=== PATIENT | female | born 2000 | race Two or more races ===

== ENCOUNTER 2024-04-10 23:36 | Inpatient (IN) | payer MEDICAID, OTHER ==
[~2024-04-10] VITALS: Ht 157.5 cm; Wt 57.6 kg
[2024-04-11 00:47] LABS: BASOPHILS % (AUTO) 0.2 % (0.0-2.0); EOSINOPHILS % (AUTO) 0.2 % (1.0-6.0); HEMATOCRIT 41.2 % (36-46); HEMOGLOBIN 12.8 g/dL (12.0-16.0); LYMPHOCYTES # (AUTO) 1.9 K/uL (1.0-4.8); LYMPHOCYTES % (AUTO) 17.6 % (22.0-44.0); MEAN CORPUSCULAR HEMOGLOBIN 20.3 pg (26.0-34.0); MEAN CORPUSCULAR HGB CONC 31.2 G/dL (31.0-37.0); MEAN CORPUSCULAR VOLUME 65 fL (80-100); MONOCYTES # (AUTO) 0.9 K/uL (0.1-1.0); MONOCYTES % (AUTO) 8.4 % (2.0-9.0); NEUTROPHILS # (AUTO) 7.9 K/uL (1.8-7.7); NEUTROPHILS % (AUTO) 73.6 % (40.0-70.0); PLATELET COUNT (AUTO) 253 K/uL (150-450); RED BLOOD CELL COUNT(AUTO) 6.33 MIL/uL (4.00-5.20); RED CELL DISTRIBUTION WIDTH 15.7 % (11.5-14.5); WHITE BLOOD COUNT (AUTO) 10.8 K/uL (4.5-11.0)
[2024-04-11 00:57] LABS: ANION GAP 15 mmol/L (8-16); CALCIUM, TOTAL 9.2 mg/dL (8.8-10.5); CARBON DIOXIDE 24 mmol/L (22-29); CHLORIDE 100 mmol/L (98-107); CREATININE 0.79 mg/dL (0.60-1.30); GLOMERULAR FILTR. RATE CALC > 60 mL/min (>60); GLUCOSE,RANDOM 107 mg/dL (70-110); POTASSIUM 3.1 mmol/L (3.5-5.1); SODIUM SERUM 139 mmol/L (136-145); UREA NITROGEN, BLOOD 8 mg/dL (7-18)
[2024-04-11 01:03] LABS: COVID AG,FIA SOURCE NASAL SWAB
[2024-04-11 01:12] LABS: ALCOHOL, BLOOD (SERUM) 72 mg/dL (0-10)
[2024-04-11 01:23] LABS: SARS-COV2 (COVID) ANTIGEN,FIA Negative (Negative)
[2024-04-11 02:01] LABS: RBC MORPHOLOGY COMMENT ABNORMAL RBC MORPH
[2024-04-11] MEDS ORDERED: ACETAMINOPHEN 650 MG/ISO-OSM 65 ML IV ONE (05:45)
[2024-04-11] MEDS ORDERED: LORazepam 2 MG TABLET PO PRN (06:00)
[2024-04-11] MEDS ORDERED: HALOPERIDOL 5 MG TABLET PO PRN (06:00)
[2024-04-11] MEDS ORDERED: ZOLPIDEM TARTRATE 10 MG TABLET PO PRN (06:00)
[2024-04-11] MEDS: POTASSIUM CHLORIDE 20 MEQ ER TABLET PO ONE (06:55)
[2024-04-11] MEDS: AMOX TR/POT CLAV 500 MG/125 MG TABLET PO ONE (06:55)
[2024-04-11] MEDS: PERTUSS(ACELL),DIPH,TET/PF 0.5 ML SYRINGE [ADULT] IM. ONE (06:56)
[2024-04-11 10:08] LABS: APPEARANCE,URINE HAZY (CLEAR); BILIRUBIN,URINE NEGATIVE (NEGATIVE); COLOR,URINE YELLOW (YELLOW); GLUCOSE, URINE (UA) NEGATIVE (NEGATIVE); LEUKOCYTE ESTERASE ,URINE TRACE (NEGATIVE); NITRATE,URINE NEGATIVE (NEGATIVE); OCCULT BLOOD,URINE SMALL (NEGATIVE); PH,URINE 5.5 (5.0-8.0); PH,URINE DRUG SCREEN 5.5 (5.0-8.0); PROTEIN,URINE TRACE mg/dL (NEGATIVE); SPECIFIC GRAVITIY, URINE 1.025 (1.003-1.030); UROBILINOGEN,URINE <=1.0 mg/dL (<=1.0)
[2024-04-11 10:14] LABS: ALCOHOL, URINE DRUG SCREEN NEGATIVE (NEGATIVE); AMPHET/METH SCREEN,URINE NEGATIVE (NEGATIVE); BARBITURATE SCREEN, URINE NEGATIVE (NEGATIVE); BENZODIAZEPINES SCREEN,URINE NEGATIVE (NEGATIVE); CANNABINOID SCREEN,URINE POSITIVE (NEGATIVE); COCAINE SCREEN,URINE NEGATIVE (NEGATIVE); METHADONE SCREEN, URINE NEGATIVE (NEGATIVE); OPIATE SCREEN,URINE NEGATIVE (NEGATIVE); PHENCYCLIDINE SCREEN,URINE NEGATIVE (NEGATIVE)
[2024-04-11 10:30] VITALS: O2SAT 98
[2024-04-11 10:38] LABS: BACTERIA,URINE Few /HPF (None Seen); RBC,URINE 0-2 /HPF (0-2); SQUAMOUS EPITHELIAL CELL,UR Few /LPF (None Seen); WBC,URINE None Seen /HPF (0-5)
[2024-04-11 10:39] LABS: AMORPHOUS SEDIMENT,UR Moderate /LPF (None Seen)
[2024-04-11 14:19] VITALS: BP 122/83; PULSE 98; RESP 16; TEMP 97.7; O2SAT 98
[2024-04-11 20:12] VITALS: BP 106/75; PULSE 88; RESP 17; TEMP 97.6; O2SAT 97
[2024-04-12 08:19] VITALS: BP 108/75; PULSE 100; RESP 18; TEMP 96.9; O2SAT 99
[2024-04-12 20:24] VITALS: BP 136/77; PULSE 78; RESP 16; TEMP 98.2; O2SAT 98
[2024-04-13] MEDS ORDERED: DOCUSATE SODIUM 100 MG CAPSULE PO PRN (08:00)
[2024-04-13] MEDS ORDERED: ONDANSETRON 4 MG TABLET PO PRN (08:00)
[2024-04-13] MEDS ORDERED: ALBUTEROL SULFATE HFA 90 MCG/PUFF 8 GM INHALER IH PRN (08:00)
[2024-04-13] MEDS ORDERED: IBUPROFEN 400 MG TABLET PO PRN (08:00)
[2024-04-13] MEDS ORDERED: ACETAMINOPHEN 325 MG TABLET PO PRN (08:00)
[2024-04-13] MEDS ORDERED: CloNIDine HCL 0.1 MG TABLET PO PRN (08:00)
[2024-04-13] MEDS ORDERED: PETROLATUM,WHITE 28 GM JELLY TP PRN (08:00)
[2024-04-13] MEDS ORDERED: MAG HYDROX/ALUMINUM HYD/SIMETH ES 30 ML SUSPENSION UDCUP PO PRN (08:00)
[2024-04-13] MEDS ORDERED: MAGNESIUM HYDROXIDE SUSPENSION 30 ML UDCUP PO PRN (08:00)
[2024-04-13] MEDS ORDERED: GuaiFENesin/D-METHORPHAN [SUGAR-FREE] 200-20MG/10 ML SYRUP UDCUP PO PRN (08:00)
[2024-04-13] MEDS ORDERED: LOPERAMIDE HCL 2 MG CAPSULE PO PRN (08:00)
[2024-04-13] MEDS ORDERED: NICOTINE 14 MG/24 HOUR PATCH TD PRN (08:00)
[2024-04-13 08:34] VITALS: BP 115/67; PULSE 79; RESP 16; TEMP 97.6; O2SAT 98
[2024-04-13] MEDS: CEPHALEXIN MONOHYDRATE 500 MG CAPSULE PO SCH (08:55)
== END 2024-04-13 13:35 | disposition home or self-care (01) | DRG 751 ==
LOC: EMS 23:40 → B3A 04-11 10:49
PROVIDERS: ADMIT Psychiatry & Neurology Child & Adolescent Psychiatry; ATTEND Psychiatry & Neurology Child & Adolescent Psychiatry
PROC: GZ56ZZZ Individual Psychotherapy, Supportive (ICD-10-PCS; principal; 2024-04-12)
DX: F33.2 Major depressive disorder, recurrent severe without psychotic features (principal); R45.851 Suicidal ideations; Z20.822 Contact with and (suspected) exposure to COVID-19; E87.6 Hypokalemia; F41.9 Anxiety disorder, unspecified; G47.00 Insomnia, unspecified; F10.10 Alcohol abuse, uncomplicated; Y90.3 Blood alcohol level of 60-79 mg/100 ml; Z79.899 Other long term (current) drug therapy
CPT/HCPCS: 80048; 80307; 81001; 84132; 85025; 90715; G0480; J0131